=== PATIENT | female | born 1990 | race Caucasian/White ===

== ENCOUNTER 2019-06-02 18:03 | Emergency (ER) | payer OTHER ==
[~2019-06-02] VITALS: Ht 157.5 cm; Wt 127.0 kg
[2019-06-02] MEDS ORDERED: FLEXERIL PO (21:23)
[2019-06-02 21:40] VITALS: BP 135/82
== END 2019-06-02 21:42 | disposition home or self-care (01) ==
LOC: ER 18:03
DX: M54.6 Pain in thoracic spine (principal); V89.2XXA Person injured in unspecified motor-vehicle accident, traffic, initial encounter; Y93.89 Activity, other specified; Y92.89 Other specified places as the place of occurrence of the external cause; Y99.8 Other external cause status

== ENCOUNTER 2019-06-07 18:43 | Emergency (ER) | payer OTHER ==
[~2019-06-07] VITALS: Ht 157.5 cm; Wt 127.0 kg
[~2019-06-07 18:43] MED LIST: FLEXERIL PO
[2019-06-07] MEDS ORDERED: NAPROSYN500 MG PO (19:00)
[2019-06-07 20:20] VITALS: BP 132/71
[2019-06-07] MEDS ORDERED: PREDNISONE 20 M20 MG PO (20:49)
[2019-06-07] MEDS ORDERED: MOBIC7.5 MG PO (20:49)
== END 2019-06-07 21:30 | disposition home or self-care (01) ==
LOC: ER 18:43
DX: S06.0X0A Concussion without loss of consciousness, initial encounter (principal); V89.2XXA Person injured in unspecified motor-vehicle accident, traffic, initial encounter; Y93.89 Activity, other specified; Y92.89 Other specified places as the place of occurrence of the external cause; Y99.8 Other external cause status

== ENCOUNTER 2019-11-11 17:48 | Emergency (ER) | payer OTHER ==
[~2019-11-11] VITALS: Ht 172.7 cm; Wt 108.0 kg
[~2019-11-11 17:48] MED LIST changes: +MOBIC7.5 MG PO; +NAPROSYN500 MG PO; +PREDNISONE 20 M20 MG PO
[2019-11-11 18:18] LABS: ABSOLUTE NEUTROPHILS 8.3 thou/uL (1.4-8.2); BASOPHILS 1.3 % (0.0-2.0); HEMATOCRIT 39.4 % (37.0-47.0); HEMOGLOBIN 12.9 gm/dL (12.0-15.0); LYMPHOCYTES 23.1 % (24.0-44.0); MCH 27.7 pg (26.0-34.0); MCHC 32.6 g/dL (28.0-37.0); MCV 84.8 fL (80.0-100.0); MONOCYTES 7.5 % (1.0-8.0); PLATELET COUNT 382 thou/uL (150-400); POLYS 66.1 % (36.0-66.0); RBC 4.65 mil/uL (4.20-5.00); RDW 14.1 % (10.5-14.5); WBC 12.6 thou/uL (4.0-11.0)
[2019-11-11 18:27] LABS: ANION GAP 8 mmol/L (7-16); BUN 9 mg/dL (7-18); CHLORIDE 101 mmol/L (98-107); CO2 32 mmol/L (21-32); CREATININE 0.9 mg/dL (0.6-1.0); GLUCOSE 114 mg/dL (74-106); POTASSIUM 3.8 mmol/L (3.5-5.1); SODIUM 141 mmol/L (136-145)
[2019-11-11 18:37] LABS: ALBUMIN 3.5 g/dL (3.4-5.0); SGOT 30 U/L (15-37); SGPT 63 U/L (30-65); TOTAL BILIRUBIN 0.3 mg/dL (<0.1-1.0); TOTAL PROTEIN 8.8 g/dL (6.4-8.2); TROPONIN-I <0.06 ng/mL (<0.06)
[2019-11-11 19:48] VITALS: BP 123/71
--- NOTE | 2019-11-14 15:58 | EKG ---
[address] [address] ELECTROCARDIOGRAM REPORT Name: ZAHRA LICEA Room #: [facility]#: [id number] Admission: 11/11/19 Attend Phys: Discharge: 11/11/19 Date of : 89 Report #: [id number] THIS REPORT FOR: //name// [facility] ED Test Date: 2019-11-11 Test Time: 17:54:54 Pat Name: ZAHRA MG Department: Room: Gender: F Banquet Director: CAL : 1990 Requested By: Lucian Swartz Order Number: [id number] MD: Lars Queen Measurements Intervals [place] Rate: 94 P: 45 NM: 134 QRS: 45 QRSD: 77 T: 35 QT: 336 QTc: 421 Interpretive Statements Sinus rhythm No previous ECG available for comparison Electronically Signed On 11-14-2019 15:58:33 [employer] by Lars Queen [email or web address] <ELECTRONICALLY SIGNED> By: Lars Queen MD 11/14/19 1558 1754 1754 Lars Queen MD /ROLLY
== END 2019-11-11 19:49 | disposition home or self-care (01) ==
LOC: ER 17:48
PROVIDERS: Emergency Medicine
DX: R07.89 Other chest pain (principal)